=== PATIENT | female | born 1950 | race Two or more races ===

== ENCOUNTER → 2024-02-27 | Emergency (ER) | payer OTHER ==
[~2024-02-27] VITALS: Ht 170.2 cm; Wt 90.7 kg
[~2024-02-27] MED LIST: ELIQUIS5 MG PO; ENTRESTO 24 MG1 EACH PO; FOLIC ACID0.8 M1 PO; HYDRALAZINE HCL25 MG PO; IRON236 MG PO; KAPSPARGO SPRIN50 MG PO; KATERZIA1 MG/1 ML PO; LASIX20 MG PO; METFORMIN HCL500 MG PO; NEURONTIN600 M1 PO; PEPCID AC10 MG PO
[2024-02-27 16:28] LABS: HEMATOCRIT 25.2 % (36.0-45.00); MEAN CELL VOLUME 77.5 fL (80.00-100.00); MEAN CORPUSCULAR HEMOGLOBIN 26.1 pg (27.00-32.0); MEAN CORPUSCULAR HGB CONC 33.7 g/dl (32.0-36.0); PLATELET COUNT 246 K/uL (150-450); RED BLOOD COUNT 3.25 M/uL (4.00-6.00)
[2024-02-27 16:29] LABS: HEMOGLOBIN 8.5 g/dL (12.0-15.00)
[2024-02-27 16:36] LABS: INR 1.12; PROTHROMBIN TIME 11.7 SECONDS (9.0-11.5)
[2024-02-27 16:57] LABS: BILIRUBIN TOTAL 0.96 mg/dL (0.3-1.2); CALCIUM 8.7 mg/dL (8.5-10.1); CREATININE SERUM 0.63 mg/dL (0.55-1.02); GFR 92.89; GLOBULINA 4.1 G/DL (2.4-3.5); POTASSIUM 4.5 mEq/L (3.5-5.1); TOTAL PROTEIN 7.1 gm/dL (6.4-8.2)
[2024-02-27 17:35] LABS: URINE APPEARANCE Clear; URINE BILIRRUBIN Negative (NEGATIVE); URINE BLOOD Negative; URINE COLOR Yellow; URINE GLUCOSE Negative (NEGATIVE); URINE LEUKOCYTE Small; URINE NITRATE Negative; URINE PROTEIN 30 (NEGATIVE)
[2024-02-27 17:39] LABS: URINE BACTERIA 31.5 uL (0.0-1933); URINE EPITHELIAL CELLS 4.1 uL (0.0-38.8); URINE RBC 5.4 uL (0.0-20.8); URINE WBC 80.2 uL (0.0-23.2)
== END | disposition designated cancer center or children's hospital (05) ==
LOC: ER 15:07
PROVIDERS: General Practice
DX: T84.022A Instability of internal right knee prosthesis, initial encounter (principal); T84.53XA Infection and inflammatory reaction due to internal right knee prosthesis, initial encounter; E11.9 Type 2 diabetes mellitus without complications; Z79.84 Long term (current) use of oral hypoglycemic drugs; I10 Essential (primary) hypertension; Z88.8 Allergy status to other drugs, medicaments and biological substances; Z20.822 Contact with and (suspected) exposure to COVID-19